=== PATIENT | male | born 1950 | race Caucasian/White ===

== ENCOUNTER 2021-05-15 11:52 | Inpatient (IN) | payer MEDICARE, OTHER ==
[~2021-05-15] VITALS: Ht 170.2 cm; Wt 70.3 kg
[~2021-05-15 11:52] MED LIST: ALFUZOSIN HCL E10 MG PO; CIPRO500 MG PO; FINASTERIDE5 MG PO; FLONASE 0.05% N16 GM; LISINOPRIL20 MG PO; NORVASC10 MG PO; OMNICEF 300 MG300 MG PO
[2021-05-15 12:48] LABS: HEMOGLOBIN 14.2 gm/dl (14.0-17.5); RED BLOOD COUNT 4.73 M/UL (4.20-5.50); WHITE BLOOD COUNT 10.5 K/UL (4.5-11.0)
[2021-05-15 13:16] LABS: BUN/CREATININE RATIO 21 (0-10)
[2021-05-16 04:13] LABS: HEMOGLOBIN 14.4 gm/dl (14.0-17.5); RED BLOOD COUNT 4.75 M/UL (4.20-5.50)
[2021-05-16 04:21] LABS: BUN/CREATININE RATIO 27 (0-10)
[2021-05-17 05:22] LABS: HEMOGLOBIN 14.1 gm/dl (14.0-17.5); RED BLOOD COUNT 4.76 M/UL (4.20-5.50); WHITE BLOOD COUNT 8.1 K/UL (4.5-11.0)
[2021-05-17 05:44] LABS: BUN/CREATININE RATIO 34 (0-10)
[2021-05-18 05:14] LABS: HEMOGLOBIN 13.2 gm/dl (14.0-17.5); RED BLOOD COUNT 4.47 M/UL (4.20-5.50); WHITE BLOOD COUNT 9.1 K/UL (4.5-11.0)
[2021-05-18 05:40] LABS: BUN/CREATININE RATIO 32 (0-10)
[2021-05-19 04:21] LABS: HEMOGLOBIN 12.7 gm/dl (14.0-17.5); RED BLOOD COUNT 4.25 M/UL (4.20-5.50); WHITE BLOOD COUNT 8.2 K/UL (4.5-11.0)
[2021-05-19 04:40] LABS: BUN/CREATININE RATIO 38 (0-10)
[2021-05-20 02:48] LABS: HEMOGLOBIN 13.1 gm/dl (14.0-17.5); RED BLOOD COUNT 4.46 M/UL (4.20-5.50); WHITE BLOOD COUNT 7.7 K/UL (4.5-11.0)
[2021-05-20 03:33] LABS: BUN/CREATININE RATIO 37 (0-10)
[2021-05-21 02:21] LABS: HEMOGLOBIN 13.2 gm/dl (14.0-17.5); RED BLOOD COUNT 4.46 M/UL (4.20-5.50); WHITE BLOOD COUNT 7.8 K/UL (4.5-11.0)
[2021-05-21 02:56] LABS: BUN/CREATININE RATIO 34 (0-10)
[2021-05-21] MEDS ORDERED: LEVOTHYROXINE50 MCG PO (12:22)
[2021-05-21] MEDS ORDERED: ELIQUIS 5 MG TAB5 MG PO (12:22)
[2021-05-21] MEDS ORDERED: ASPIRIN EC81 MG PO (12:22)
[2021-05-21] MEDS ORDERED: LOPRESSOR 25 MG25 MG PO (12:22)
[2021-05-22 03:29] LABS: HEMOGLOBIN 13.9 gm/dl (14.0-17.5); RED BLOOD COUNT 4.66 M/UL (4.20-5.50); WHITE BLOOD COUNT 8.8 K/UL (4.5-11.0)
[2021-05-22 03:48] LABS: BUN/CREATININE RATIO 33 (0-10)
[2021-05-22] MEDS ORDERED: ASPIRIN EC81 MG PO (11:17)
[2021-05-22] MEDS ORDERED: LOPRESSOR 25 MG25 MG PO (11:17)
[2021-05-22] MEDS ORDERED: ELIQUIS5 MG PO (11:17)
[2021-05-22] MEDS ORDERED: LEVALBUTER1.25 MG/3 NEB (11:24)
[2021-05-22] MEDS ORDERED: IPRATROPIU0.2 MG/1 M NEB (11:24)
[2021-05-22] MEDS ORDERED: MEDROL DOSEPAK 24 MG PO (11:24)
[2021-05-22] MEDS ORDERED: PULMICORT0.5 MG/2 M INH (11:24)
== END 2021-05-22 14:35 | disposition home health service (06) | DRG 177 ==
LOC: ER1 11:52 → PROG CARE 15:47 → CDU 15:47 → PROG CARE 05-16 10:57 → CCU 05-16 20:44 → PROG CARE 05-19 17:16
PROVIDERS: Emergency Medicine; Internal Medicine Pulmonary Disease; Physician Assistant Medical; ADMIT Family Medicine
PROC: XW033H5 Introduction of Tocilizumab into Peripheral Vein, Percutaneous Approach, New Technology Group 5 (ICD-10-PCS; 2021-05-15)
PROC: 8E0ZXY6 Isolation (ICD-10-PCS; 2021-05-15)
PROC: 5A09457 Assistance with Respiratory Ventilation, 24-96 Consecutive Hours, Continuous Positive Airway Pressure (ICD-10-PCS; 2021-05-16)
PROC: XW033E5 Introduction of Remdesivir Anti-infective into Peripheral Vein, Percutaneous Approach, New Technology Group 5 (ICD-10-PCS; principal; 2021-05-17)
PROC: XW13325 Transfusion of Convalescent Plasma (Nonautologous) into Peripheral Vein, Percutaneous Approach, New Technology Group 5 (ICD-10-PCS; 2021-05-17)
PROC: B24BZZZ Ultrasonography of Heart with Aorta (ICD-10-PCS; 2021-05-17)
DX: U07.1 COVID-19 (principal); J12.82 Pneumonia due to coronavirus disease 2019; I21.A1 Myocardial infarction type 2; J80 Acute respiratory distress syndrome; J44.0 Chronic obstructive pulmonary disease with (acute) lower respiratory infection; E11.9 Type 2 diabetes mellitus without complications; I10 Essential (primary) hypertension; J45.909 Unspecified asthma, uncomplicated; N40.0 Benign prostatic hyperplasia without lower urinary tract symptoms; E03.9 Hypothyroidism, unspecified; I48.91 Unspecified atrial fibrillation; Z79.890 Hormone replacement therapy; Z79.01 Long term (current) use of anticoagulants; Z98.890 Other specified postprocedural states; Z82.49 Family history of ischemic heart disease and other diseases of the circulatory system; Z83.3 Family history of diabetes mellitus
CPT/HCPCS: ECHO; 0240U; 36415; 36600; 70491; 71045; 80048; 80053; 82550; 82553; 82728; 82803; 83605; 83615; 83735; 83880; 84100; 84439; 84443; 84484; 85025; 85027; 85379; 85384; 85610; 85730; 86140; 86900; 86901; 86927; 87040; 87081; 93005; 93306; 94640; 94660; 94664; 94760; 96374; 97110; 97161; 99285; G0378; J0456; J0696; J1100; J1160; J1650; J7030; Q9967

== ENCOUNTER → 2021-05-30 | Outpatient (CLI) | payer MEDICARE, OTHER ==
[~2021-05-30] MED LIST changes: +ASPIRIN EC81 MG PO; +ELIQUIS 5 MG TAB5 MG PO; +ELIQUIS5 MG PO; +IPRATROPIU0.2 MG/1 M NEB; +LEVALBUTER1.25 MG/3 NEB; +LEVOTHYROXINE50 MCG PO; +LOPRESSOR 25 MG25 MG PO; +MEDROL DOSEPAK 24 MG PO; +PULMICORT0.5 MG/2 M INH
== END ==
LOC: KOH-I 11:51
DX: U07.1 COVID-19 (principal); J12.82 Pneumonia due to coronavirus disease 2019
CPT/HCPCS: 71046

== ENCOUNTER → 2021-06-13 | Outpatient (CLI) | payer MEDICARE, OTHER | LOC: EXRD 11:01 | DX: Z09 Encounter for follow-up examination after completed treatment for conditions other than malignant neoplasm (principal); Z86.16 Personal history of COVID-19; R91.8 Other nonspecific abnormal finding of lung field | CPT/HCPCS: 71046 ==

== ENCOUNTER → 2021-07-11 | Outpatient (CLI) | payer MEDICARE, OTHER | LOC: HEART 5 09:00 | DX: I48.91 Unspecified atrial fibrillation (principal) ==

== ENCOUNTER → 2021-08-29 | Outpatient (CLI) | payer MEDICARE, OTHER | LOC: EXRD 10:37 | DX: Z09 Encounter for follow-up examination after completed treatment for conditions other than malignant neoplasm (principal); Z86.16 Personal history of COVID-19 | CPT/HCPCS: 71046 ==